=== PATIENT | male | born 1985 | race Caucasian/White ===

== ENCOUNTER 2019-03-25 12:56 | Emergency (ER) | payer OTHER ==
[2019-03-25 13:13] VITALS: BP 146/84; PULSE 62; RESP 18; TEMP 98
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
== END 2019-03-25 14:17 | disposition home or self-care (01) ==
LOC: EC 12:56
DX: L02.811 Cutaneous abscess of head [any part, except face] (principal); M54.2 Cervicalgia; F17.200 Nicotine dependence, unspecified, uncomplicated; Z88.0 Allergy status to penicillin
CPT/HCPCS: 99283

== ENCOUNTER 2022-05-03 03:32 | Emergency (ER) | payer OTHER ==
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
[2022-05-03 03:55] VITALS: BP 149/79; PULSE 89; RESP 19
== END 2022-05-03 04:04 | disposition home or self-care (01) ==
LOC: EC 03:32
DX: Z88.0 Allergy status to penicillin
CPT/HCPCS: 99284